=== PATIENT | female | born 1930 | race Caucasian/White ===

== ENCOUNTER 2019-05-10 09:50 | Outpatient (CLI) | payer MEDICARE ==
--- NOTE | 2019-05-10 11:36 | CT ---
EXAM: CTA abdomen HISTORY: Severe abdominal pain extending to the back COMPARISON: None TECHNIQUE: Multiple contiguous axial images were obtained a CTA of the abdomen without and with contr ast. Sagittal and coronal 3-D MIP reformats were performed. FINDINGS: LIVER: Unremarkable. GALLBLADDER: Unremarkable. KIDNEYS: Hypodensities measuring up to 3.1 cm in size are present cysts.. SPLEEN: Unremarkable. PANCREAS: Unremarkable. BOWEL: Scattered diverticula in the sigmoid colon.. RETROPERITONEUM: No lymphadenopathy ABDOMINAL WALL SOFT TISSUES: Unremarkable BONES: Degenerative changes in the spine. The patient has a left hip prosthesis. ABDOMINAL AORTA: Normal caliber without evidence of dissection or aneurysmal dilatation. Mild diffuse atherosclerotic disease. CELIAC TRUNK: Patent SMA: Patent PAPA: Patent RENAL ARTERIES: Bilateral single renal arteries without significant atherosclerotic disease IMPRESSION: 1. No evidence of abdominal aortic aneurysm or focal dissection 2. Bilateral renal cysts. 3. Diverticulosis
[2019-05-10] MEDS ORDERED: Iopamidol 370 76% 100 ML VIAL ONE (17:14)
== END 2019-05-10 09:51 | disposition home or self-care (01) ==
LOC: CT 09:50
PROVIDERS: ATTEND Internal Medicine Gastroenterology
DX: R10.9 Unspecified abdominal pain (principal); R93.5 Abnormal findings on diagnostic imaging of other abdominal regions, including retroperitoneum; N28.1 Cyst of kidney, acquired; K57.30 Diverticulosis of large intestine without perforation or abscess without bleeding
CPT/HCPCS: 74174; 82565; Q9967

== ENCOUNTER 2020-01-05 21:45 | Emergency (ER) | payer MEDICARE ==
[2020-01-05 22:18] LABS: #Basophils 0.1 thou/uL (0.0-0.2); #Eosinphils 0.5 thou/uL (0.0-0.7); #Lymphocytes 2.3 thou/uL (1.20-3.40); #Monocytes 0.7 thou/uL (0.11-0.59); #Neutrophils 3.6 thou/uL (1.40-6.50); %Basophils 0.7 % (0.0-1.0); %Eosinophils 6.5 % (0.0-10.0); %Lymphocytes 32.1 % (21.0-51.0); %Neutrophils 50.7 % (42.0-75.0); Hemoglobin 12.1 g/dL (12.0-16.0); Mean Corpuscular HGB CONC 33.7 g/dL (32.0-36.0); Mean Corpuscular Hemoglobin 32.6 pg (27.0-31.0); Mean Corpuscular Volume 96.7 fL (78.0-98.0); Platelet Count 200 thou/uL (130-400); RBC Distribution Width 12.3 % (11.5-14.5); Red Blood Cell (RBC) Count 3.73 mill/uL (4.20-5.40)
[2020-01-05 22:40] LABS: ALT (SGPT) 26 U/L (8-55); AST (SGOT) 36 U/L (5-34); Albumin 4.4 g/dL (3.4-4.8); Alkaline Phosphatase 220 U/L (40-110); Anion Gap 17 mmol/L (10-20); BUN (Urea Nitrogen) 57 mg/dL (9.8-20.1); Bilirubin, Total 0.4 mg/dL (0.2-1.2); Calc. Creatinine Clearance 0 mL/min (70-130); Calcium 9.8 mg/dL (7.8-10.44); Carbon Dioxide 20 mmol/L (23-31); Chloride 107 mmol/L (98-107); Estimated GFR-MDRD 24; Globulin 3.4 g/dL (2.4-3.5); Glucose 110 mg/dL (83-110); Potassium 5.1 mmol/L (3.5-5.1); Protein, Total 7.8 g/dL (6.0-8.3); Sodium 139 mmol/L (136-145)
--- NOTE | 2020-01-05 23:46 | ULT ---
EXAM: Right lower extremity venous Doppler US HISTORY: Right lower extremity edema and pain FINDINGS: Grayscale, color-flow, Doppler evaluation, spectral analysis of the right lower extremity venous stru ctures is performed with 2-D imaging. The right common femoral, superficial femoral, popliteal, posterior tibial, proximal greater saphenous and profunda femoral veins are imaged. There is normal luminal compressibility, flow, and augmentation the visualized deep venous structures of the right lower extremity. IMPRESSION: No evidence of a deep vein thrombosis in the right lower extremity.
== END 2020-01-06 00:12 | disposition home or self-care (01) ==
LOC: ERS 21:45
DX: M79.604 Pain in right leg (principal); R60.0 Localized edema; I10 Essential (primary) hypertension; I48.91 Unspecified atrial fibrillation; M19.90 Unspecified osteoarthritis, unspecified site; E03.9 Hypothyroidism, unspecified; Z79.899 Other long term (current) drug therapy
CPT/HCPCS: 36415; 80053; 83880; 85025